=== PATIENT | female | born 1950 | race Caucasian/White ===

== ENCOUNTER 2023-09-09 15:37 | Emergency (ER) | payer MEDICARE ==
[~2023-09-09] VITALS: Ht 162.6 cm; Wt 71.6 kg
[~2023-09-09 15:37] MED LIST: ASPIRINCHW 81MG PO; ATENOLOL50 MG PO; ATORVASTATIN CA20 MG PO; DOXY-CAPS100 MG PO; NEXIUM40 M1 PO; PREDNISONE50 MG PO; TENORETIC 50 501 TAB; VENTOLIN HFA108 MCG PO
[2023-09-09 15:44] VITALS: BP 146/108
[2023-09-09 16:00] VITALS: BP 129/62
[2023-09-09] MEDS ORDERED: ROBITUSSIN AC10 ML PO (18:40)
[2023-09-09 18:45] VITALS: BP 129/62
== END 2023-09-09 18:48 | disposition home or self-care (01) ==
LOC: ED 15:37
DX: J20.8 Acute bronchitis due to other specified organisms (principal); I10 Essential (primary) hypertension; I48.91 Unspecified atrial fibrillation; Z95.818 Presence of other cardiac implants and grafts; Z20.822 Contact with and (suspected) exposure to COVID-19